=== PATIENT | female | born 2000 | race Caucasian/White ===

== ENCOUNTER 2020-08-14 18:38 | Outpatient (CLI) | payer OTHER ==
[~2020-08-14] VITALS: Ht 160 cm; Wt 72.7 kg
[2020-08-14 18:50] VITALS: BP 134/71; PULSE 116; TEMP 97.3
--- NOTE | 2020-08-14 18:50 | NUR ---
1850 G3 L1 36 WEEK GEST TO LR5 WITH C/O DECREASED MOVEMENT TODAY. HX 24 WEEK TWIN DEL PER C/S WITH LAST . ONE TWIN . HAS ONE LIVING CHILD. PLANNING ON WITH DR WILLSON WITH THIS . [facility] HAS NOT FELT THE BABY MOVE MUCH TODAY. NO C/O CONTRACTIONS OR ANY OTHER PROBLEMS. EFM ON. ADM ASSESSMENT DONE. MOVEMENT NOTED ON EFM BUT NOT FELT BY PT. ACCELS NOTED WITH MOVEMENT. OCC IRREGULAR CONTRACTION NOTED BUT NOT FELT BY PT. [facility] HAS NEXT DRS APPOINTMENT ON FRIDAY.
[2020-08-14] MEDS ORDERED: PRENATAL TABLET PO (18:58)
[2020-08-14] MEDS ORDERED: CEPHALEXIN500 M1 PO (18:59)
[2020-08-14] MEDS ORDERED: CENTANY AT2% TOP (19:00)
[2020-08-14] MEDS ORDERED: FLONASEALLERGY NAS (19:01)
[2020-08-14 19:02] VITALS: BP 134/71; PULSE 116; TEMP 97.3
[2020-08-14 19:15] VITALS: BP 134/71; PULSE 104
--- NOTE | 2020-08-14 19:20 | NUR ---
1919 BABY MOVEMENT PICKED UP ON EFM . PT FEELS SOME SL MOVEMENT. CONTRACTION NOTED EVERY 10 MINUTES BUT NOT FELT BY PT. GOOD VARIABILITY AND ACCELS NOTED. DR HEARD CALLED IN FOR REPORT AND GIVEN. DOES NOT REQUIRE SVE. MAY GO HOME 1944 HOME WITH INSTRUCTIONS.
== END 2020-08-14 19:45 | disposition home or self-care (01) ==
LOC: LDRO 18:38
DX: O36.8130 Decreased fetal movements, third trimester, not applicable or unspecified (principal); Z3A.36 36 weeks gestation of pregnancy

== ENCOUNTER → 2020-09-13 | Outpatient (CLI) | payer OTHER ==
[~2020-09-13] MED LIST: CENTANY AT2% TOP; CEPHALEXIN500 M1 PO; FLONASEALLERGY NAS; MOTRIN 800800 MG/TAB PO; PERCOCET 325 MG1 TA2 PO; PRENATAL TABLET PO
== END ==
LOC: ZCOL.LAB 08:00
DX: Z20.822 Contact with and (suspected) exposure to COVID-19 (principal)

== ENCOUNTER 2020-09-16 01:00 | Outpatient (CLI) | payer OTHER ==
[~2020-09-16] VITALS: Ht 160 cm; Wt 75.5 kg
[~2020-09-16 01:00] MED LIST changes: -MOTRIN 800800 MG/TAB PO; -PERCOCET 325 MG1 TA2 PO
--- NOTE | 2020-09-16 01:05 | NUR ---
0105- PT PRESENTS TO R COMPLAINING OF CRAMPING AND LOW BACK PAIN, AMBULATORY TO ROOM LR6, CHANGED INTO GOWN. 0109- EFM X2 APPLIED. PT DENIES LEAKING FLUID, STATES SHE HAS HAD SOME SPOTTING, IS NOT SURE IF SHE IS HAVING CONTRACTIONS, AND STATES SHE HAS BEEN FEELING BABY MOVE. PLAN OF CARE FOR LABOR CHECK DISCUSSED. 0113- SVE BY THIS NURSE 0-/-3 WITH OLD PINK DISCHARGE NOTED ON GLOVE. DISCUSSED LABOR CHECK WITH PT AND ANSWERED QUESTIONS. 0120- NURSING ADMISSION HISTORY AND ASSESSMENT COMPLETED. ORAL HYDRATION PROVIDED. 0150- PT TILTED MORE TO LEFT. PT THEN GETS UP TO USE BATHROOM. 0155- PT BACK ON MONITORS. STATES SHE IS FEELING HER CONTRACTIONS A LITTLE MORE. 0225- PT STATES SHE FEELS HER CONTRACTIONS ARE MORE CONSISTENT NOW. SVE BY THIS NURSE UNCHANGED. PT OFF MONITORS. 0230- DR HEARD CALLED AND UPDATED ON PT HISTORY, COMPLAINT, STRIP INTERPRETATION, VSS, AND SVE WITH NO CHANGE AFTER AN HOUR. ORDERS TO DISMISS TO HOME WITH LABOR PRECAUTIONS. 0242- DISMISSAL INSTRUCTIONS GIVEN, INCLUDING WHEN TO RETURN TO R, PT VERBALIZES UNDERSTANDING. PT DISMISSED TO HOME ACCOMPANIED BY SPOUSE.
[2020-09-16 01:30] VITALS: BP 147/80; PULSE 115; TEMP 98.2
[2020-09-16 02:30] VITALS: BP 130/72; PULSE 91
[2020-09-16] MEDS ORDERED: PERCOCET 325 MG1 TA2 PO (11:36)
[2020-09-16] MEDS ORDERED: MOTRIN 800800 MG/TAB PO (11:36)
== END 2020-09-16 02:42 | disposition home or self-care (01) ==
LOC: LDRO 01:00 → LDR 01:05 → LDRO 02:42
DX: O62.9 Abnormality of forces of labor, unspecified (principal); Z3A.40 40 weeks gestation of pregnancy
CPT/HCPCS: OP

== ENCOUNTER 2020-09-16 07:44 | Inpatient (IN) | payer OTHER ==
[2020-09-16] VITALS (52 sets, daily range): BP systolic 94–145; BP diastolic 45–81; PULSE 69–125; TEMP 97.9–98.3
[~2020-09-16] VITALS: Ht 160.1 cm; Wt 75.5 kg
--- NOTE | 2020-09-16 07:50 | NUR ---
Patient ambulatory to LR2 with spouse, changed into gown, FHR/TOCO monitors placed and explained. Patient states "I was here as a check earlier this morning and got sent home, I continued to have contractions and then my water broke around 0630", denies any vaginal bleeding or decreased movement. Plan of care discussed and questions answered. 0800: SVE-1/60/-3 and amniotest done-positive and clear fluid noted with check. Patients plan is to at this time. Dr. English called and notified and admission ordered received. 0820: IV started in left hand, blood obtained and to lab, flushed. Assessment completed, consents gone over and signed, packet given. 0835: Grecia PIMENTEL at bedside discussing plan of care and questions answered. MANAGER MERCHANDISE recommends placed epidural for access and no medication until needed. Patient agrees to plan. 0850: Dr. English at bedside and discussing the risks of . Patient verbalizes understanding and continues with plan at this time. 0900: Patient sitting up for placement of epidural. Grecia PIMENTEL at bedside. 0910: Small test dose given and patient tolerates well. Plan of care discussed. 0915: Patient off monitors to void. 0820: Patient standing/sitting on birthing ball. 1000: Patient resting left lateral in bed and no needs at this time.
[2020-09-16 08:57] LABS: BASO % 0.1 % (0.0-2.0); EOS # 0.1 (0.0-0.7); EOS % 0.4 % (0-4.0); GRAN # 13.5 (1.4-6.5); GRAN % 82.6 % (42.2-75.2); HEMATOCRIT 39.9 % (37.0-47.0); LYMPH # 1.6 (1.2-3.4); LYMPH % 9.5 % (20.0-51.0); MEAN CELL VOLUME 91 fl (80.0-100.0); MEAN CORPUSCULAR HEMOGLOBIN 32 pg (27.0-31.0); MEAN CORPUSCULAR HGB CONC 35 g/dl (33.0-37.0); MEAN PLATELET VOLUME 11.1 fl (7.4-10.4); MONO % 6.2 % (1.7-9.3); PLATELET COUNT 215 K/mm3 (130-400); RED BLOOD COUNT 4.39 M/mm3 (4.10-5.30); REDCELL DISTRIBUTION WIDTH-CV 13.3 % (11.5-14.5)
[2020-09-16] MEDS ORDERED: PERCOCET 325 MG1 TA2 PO (11:36)
[2020-09-16] MEDS ORDERED: MOTRIN 800800 MG/TAB PO (11:36)
--- NOTE | 2020-09-16 11:45 | NUR ---
Patient requesting to have epidural medicine at this time. Grecia PIMENTEL notified. LR bolus started. Patient off monitors to void. 1200: SVE-2/60/-3 1210: Brian Recinos CRNA at bedside and discussing plan. 1211: Single shot given and patient tolerates well. Continuous pump running. See anesthesia record. 1250: FHR tracing subtle late deceleration and spontaneous return to baseline. Patient wedged left. 1355: Patient comfortable with epidural. Crooks catheter placed and patient tolerates. SVE 2-3/60/-2. Patient left lateral with peanut ball in place. 1450: Patient right lateral with peanut ball in place. 1600: Patient sitting up in gallito position. Dr. English at bedside assessing patient and FHR strip. No new orders. 1635: SVE-3/70/-2 and right lateral and left leg resting in stirrup. 1710: Patient left lateral with right leg resting in stirrup.
--- NOTE | 2020-09-16 19:25 | NUR ---
Ctx noted. FHR down to 90s-100s. RN at bedside. Spontaneous resolution of baseline to 135.
--- NOTE | 2020-09-16 19:45 | NUR ---
Dr. English at bedside. SVE unchanged. POC for c/s. Pt agrees to POC. 2005-Taken off monitors and taken via bed to OR.
[2020-09-17 00:33] VITALS: BP 127/61; PULSE 104; TEMP 97.9
[2020-09-17 04:00] VITALS: BP 121/66; PULSE 79; TEMP 97.9
[2020-09-17 08:30] VITALS: BP 121/56; PULSE 84; TEMP 97.7
[2020-09-17 12:30] VITALS: BP 110/61; PULSE 89; TEMP 98
--- NOTE | 2020-09-17 15:00 | NUR ---
Luma- FRED Ybarra calls this RN to bedside. Pt voided for first time, 320mls but feels pressure in lower abd. Bladder scan showed 66mls in bladder. Fundus firm and at the U, deviated slightly to the left, scant bleeding on pad and no clots noted. Encouraged Pt to wait until Percocet kicks in and ambulate in the hallway and Void frequently.
[2020-09-17 17:30] VITALS: BP 126/42; PULSE 87; TEMP 97.3
[2020-09-17 19:15] VITALS: BP 118/63; PULSE 88; TEMP 97.5
[2020-09-18 03:15] VITALS: BP 133/70; PULSE 74; TEMP 98.1
[2020-09-18 07:27] VITALS: BP 122/43; PULSE 83; TEMP 98.5
--- NOTE | 2020-09-18 09:43 | NUR ---
Initial visit; Parents thanked Tearer for offering congratulations and God's blessings for the of their son. Tearer thanked family for choosing [facility] [place].
== END 2020-09-18 12:00 | disposition home or self-care (01) | DRG 788 ==
LOC: LDRO 07:44 → EDSTATUS 08:11 → LDR 08:12 → OB 21:30
PROVIDERS: Obstetrics & Gynecology; ADMIT Obstetrics & Gynecology
PROC: 10D00Z1 Extraction of Products of Conception, Low, Open Approach (ICD-10-PCS; principal; 2020-09-16)
DX: O48.0 Post-term pregnancy (principal); O34.211 Maternal care for low transverse scar from previous cesarean delivery; O99.344 Other mental disorders complicating childbirth; F41.9 Anxiety disorder, unspecified; F32.9 Major depressive disorder, single episode, unspecified; Z37.0 Single live birth; Z3A.40 40 weeks gestation of pregnancy
CPT/HCPCS: J0690; J1885; J2400; J2405; J2590; J2795; J3010; J7120